=== PATIENT | female | born 1985 | race Caucasian/White ===

== ENCOUNTER 2016-10-01 15:55 | Emergency (ER) | payer OTHER ==
--- NOTE | 2016-10-01 16:22 | ED NURSING NOTES ---
Clinical Report - Nurses [facility] [place] [address] 10/01/2016 15:56 Patient: GRETCHEN HUFF TRIAGE Triage time 16:02. Acuity: LEVEL 4. Chief Complaint: SKIN PROBLEM and BOIL. Alert. No acute distress. SEPSIS SCREEN: Sepsis Screen. Negative (no infection suspected/documented). MIKE COMA SCORE: Mike Coma Scale: 15- eyes open spontaneously (4); best verbal response- oriented x 4 (5); best motor response- obeys commands (6). --16:12 Jane Taveras R.N. 16:02 10/01/16. BP: 130/71. HR: 87. RR: 16. O2 saturation: 99%. Temp: 98.7 F. Pain level now 7/10. --16:12 Jane Taveras R.N. Weight: 81.6 kg stated. Height/Length: 65 inches Per Patient. BMI: 30. --16:10 Jane Taveras R.N. Medications Methadone HCl Oral 98mg, daily. --16:04 Jane Taveras R.N. Allergies Penicillin. --16:04 Jane Taveras R.N. Keflex.(Anaphylaxis) --16:04 Jane Taveras R.N. Bactrim. --16:04 Jane Taveras R.N. Biaxin. --16:05 Jane Taveras R.N. Cephalosporins. --16:05 Jane Taveras R.N. Other antibiotics cant recall . --16:05 Jane Taveras R.N. The following entry was struck and corrected by Jane Taveras R.N., 16:09 (10/01/16) Reason for correction - other(correction). <<STRICKEN ENTRY-- Keflex. --16:04 Jane Taveras R.N. --END STRIKE>>. History Arrived by private vehicle. Historian: patient. Unaccompanied (pt dropped off). Primary physician (none). Reported as located on the left thigh. Onset. (2 days ago). Treatment RESEARCH MANAGEMENT ASSOCIATE: None. PAST MEDICAL HX: Immunizations: up-to-date. SOCIAL HX: Light tobacco smoker (cigarette)- less than 1/2 a pack per day. History of IV drug use: heroin, methamphetamines. (last used today in the am). No alcohol use. No infectious disease exposure. ABUSE ASSESSMENT: Abuse assessment: The patient was asked "Do you feel safe in your home?" and "Has anyone hurt you or threatened to hurt you?". No report of abuse. SELF HARM ASSESSMENT: A self harm assessment was performed. The patient answered "no" to the question "Do you have thoughts of harming or killing yourself?" and "Have you recently had thoughts about harming or killing others?". NUTRITIONAL RISK ASSESSMENT: The nutritional risk assessment revealed no deficiencies. FUNCTIONAL ASSESSMENT: Functional assessment: no impairments noted. LEARNING NEEDS ASSESSMENT: The learning needs assessment revealed no barriers. --16:12 Jane Taveras R.N. PROBLEMS: DVT - Deep Venous Thrombosis. Gallstone pancreatitis. Osteomyelitis. Abscess. --16:08 Jane Taveras R.N. MRSA Infection. Hepatitis. --16:17 Jane Taveras R.N. ADDITIONAL SURGERIES: Gallbladder Surgery. Laparoscopy. Left foot. --16:08 Jane Taveras R.N. Interventions ID band on patient. Ambulatory. --16:12 Jane Taveras R.N. PHYSICAL ASSESSMENT Ambulatory to room. GENERAL / NEURO / PSYCH: Alert. The patient does not appear to be in acute distress. RESPIRATORY: Respirations not labored. CVS: Capillary refill less than 2 seconds. SKIN: Skin is warm and dry. Single skin lesion on the left thigh. --16:12 Jane Taveras R.N. NURSING PROGRESS NOTES Patient ready for evaluation- chart flagged. --16:12 Jane Taveras R.N. Patient gowned. Two patient identifiers checked. Call light placed in reach. Side rails up x 2. Bed placed in lowest position. Brakes of bed on. --16:12 Jane Taveras R.N. ( wound irrigated with 250ml NS.). --16:24 Jane Taveras R.N. DISPOSITION / DISCHARGE 16:40. Departure time: 1640. Condition at departure: stable. No learning barriers present. Discharge instructions provided and reviewed with the patient. Reviewed medication(s) side effects, precautions, dosing and course information. Prescription(s) given to the patient. Reviewed referral to family practice for followup. Patient verbalized understanding. Written instructions provided in Dutch. The patient was discharged home and unaccompanied at time of discharge. She left the Emergency Department ambulatory. Medication list reviewed and validated. --16:54 Jane Taveras R.N. 16:40 10/01/16. RR: 16. [place]-Rodriguez pain scale: 10. --16:54 Jane Taveras R.N. 16:40. ( d/c v/s deferred due to pt in ED < 1 hour. Pt. appears stable and comfortable at time of d/c.). --16:57 Jane Taveras R.N. Locked/Released at 10/01/2016 16:57 by Jane Taveras R.N.
--- NOTE | 2016-10-01 16:22 | ED CLINICAL REPORT ---
Clinical Report - Physicians/[facility] [address] [place] [address] 10/01/2016 15:56 Patient: GRETCHEN HUFF Time Seen: 16:08; upon arrival, initial patient contact, initial documentation, patient care assumed. Arrived- By private vehicle. Historian- patient. HISTORY OF PRESENT ILLNESS Chief Complaint: LESION. This started about 2 days ago and is still present but is improving. Not itchy, painful or burning. It has been located on the trunk (L groin area). No cause has been identified. (says it is better now after she opened it herself x2 days ago pt admitted to being noncompliant with her meds and medical tx pt also admitted to rn that she used that site for iv drug use). Similar symptoms previously: Frequently, worse. Recent medical care: Not recently seen/assessed. REVIEW OF SYSTEMS No fever. All systems otherwise negative, except as recorded above. PAST HISTORY See nurses notes. PROBLEMS: DVT - Deep Venous Thrombosis. Gallstone pancreatitis. Osteomyelitis. Abscess. --16:08 Jane Taveras R.N. MRSA Infection. Hepatitis. --16:17 Jane Taveras R.N. ADDITIONAL SURGERIES: Gallbladder Surgery. Laparoscopy. Left foot. --16:08 Jane Taveras R.N. Chronic substance abuse (heroin, methamphetamines). SOCIAL HISTORY Light tobacco smoker. Occasional alcohol use. History of heavy IV drug use: heroin, methamphetamines. Recently used drugs today. No recent travel. Is a local resident. FAMILY HISTORY Negative. ADDITIONAL NOTES The nursing notes have been reviewed with agreement regarding the chief complaint, HPI, ROS, PMH and patient medications and allergies. PHYSICAL EXAM Vital Signs: 10/01/2016 16:02 BP: 130/71. HR: 87. RR: 16. O2 saturation: 99%. Temp: 98.7 F. Have been reviewed as normal and appear to be correct. Appearance: Alert. Oriented X3. No acute distress. Neck: Neck supple. Respiratory: No respiratory distress. Skin: Skin warm and dry. Normal skin color. No rash. Normal skin turgor. (needle size hole noted to L groin/inguinal area, no dc, no erythema, no swelling, no warmth, nontender, iv drug use site, no lymphadenitis or swelling). Extremities: Normal external inspection. Extremities nontender. Neuro: Oriented X 3. No motor deficit. No sensory deficit. PROGRESS AND PROCEDURES Course of Care: pt has ellie with recommendations for rx narcs or benzos, and use of er, #11 er visits, see report for full details tx options discussed, pt wanting rx for abx to keep it from getting worse, pt stated she could take sulfa products, just not bactrim because bactrim made her vomit, would also like stuff to pack it with and irrigate. Patient counseled in person regarding the patient's stable condition and diagnosis. 16:21. Differential Diagnosis: Other possible considerations: substance abuse, abscess, cellulitis, mrsa. Above considerations are based on history and physical exam. Differential diagnosis was discussed with patient. Disposition: Discharged home in good and improved condition (16:22). Condition: good and stable. CLINICAL IMPRESSION Substance abuse. (Local Skin Infection). INSTRUCTIONS Warnings: GENERAL WARNINGS: Return or contact your physician immediately if your condition worsens or changes unexpectedly, if not improving as expected, or if other problems arise. Specifically return if problem worsens. Prescription Medications: Sulfamethoxazole 500 mg: take 1 tablet orally every 12 hours for 10 days. No refill Bactroban 2% ointment: apply small amount to affected area three times daily for 5 days. Dispense twenty-two (22) grams. No refills. Substitution is permissible. Follow-up: Follow up with your doctor in about three days as needed and for wound check. Call for an appointment. Summary of care provided to patient. Understanding of the discharge instructions verbalized by patient. (Electronically signed by Rosita Esparza A.R.N.P. 10/01/2016 19:05)
--- NOTE | 2016-10-01 19:05 | ED DISCHARGE INSTRUCTIONS ---
Patient: GRETCHEN HUFF General Instructions [facility] VisitID: [id number] [place] [address] 31y, F Registration Date/Time: 10/01/2016 Substance abuse. (Local Skin Infection). INSTRUCTIONS Warnings: GENERAL WARNINGS: Return or contact your physician immediately if your condition worsens or changes unexpectedly, if not improving as expected, or if other problems arise. Specifically return if problem worsens. Prescription Medications: Sulfamethoxazole 500 mg: take 1 tablet orally every 12 hours for 10 days. No refill Bactroban 2% ointment: apply small amount to affected area three times daily for 5 days. Dispense twenty-two (22) grams. No refills. Substitution is permissible. Follow-up: Follow up with your doctor in about three days as needed and for wound check. Call for an appointment. Summary of care provided to patient. Understanding of the discharge instructions verbalized by patient. ADDITIONAL INFORMATION Drug Abuse Use and abuse of such drugs as marijuana, amphetamines (speed, crank), cocaine, heroin or prescription pain medicines (Vicodin, codeine), sedatives and sleeping pills (Valium, Klonopin), PCP, mescaline and LSD may lead to addiction or dependence. Once this occurs, you are at greater risk for any of the following: Craving for the drug and unable to stop using the drug even though you think you want to stop (psychological dependence) Drug withdrawal symptoms if you stop taking the drug (physical dependence) Loss of your job or your family Arrest, conviction and skilled nursing sentence for possession of an illegal substance or for driving under the influence of such a substance Accidental injuries to yourself or others while you are under the influence of the drug (in a car or at home). HIV infection (much greater risk if you use IV drugs) Other sexually transmitted diseases (herpes, chlamydia, gonorrhea and others) Severe and fatal infection of the heart valves (if you use IV drugs) Stroke, heart attack, hepatitis B or C, kidney failure from overdose Home Care: Admit you have a drug problem. Ask for help from your family and close friends. Seek professional help. This could be in the form of individual psychotherapy or counseling or an outpatient, inpatient, or residential drug treatment program. Join a self-help group for drug abuse. Avoid friends who abuse drugs themselves or tempt you to continue abusing drugs. Eat a balanced diet and begin a regular exercise program. Follow Up with your doctor or as advised by our staff. Contact one of the resources below for help. National [place] on Alcoholism and Drug Dependence www.ncadd.org 696-153-GJIJ Narcotics Anonymous www.na.org 990-299-4462 National Alcohol and Substance Abuse Information Center (for referral to treatment programs) www.addictionHistoric Futures 799-468-1837 Get Prompt Medical Attention if any of the following occur: Agitation, anxiety, unable to sleep Unintended weight loss (more than 10 to 15 pounds over 3 months) Seizure Chest pain Fever of 100.4F (38C) or higher, or as directed by your healthcare provider Excess drowsiness or inability to be awakened Shortness of breath Slow breathing under 8 breaths per minute Cough with colored sputum Redness, swelling or tenderness at an injection site Sulfamethoxazole, Trimethoprim Oral tablet What is this medicine? SULFAMETHOXAZOLE; TRIMETHOPRIM or SMX-TMP (suhl fuh meth OK sanket zohl; trye METH oh prim) is a combination of a sulfonamide antibiotic and a second antibiotic, trimethoprim. It is used to treat or prevent certain kinds of bacterial infections. It will not work for colds, flu, or other viral infections. How should I use this medicine? Take this medicine by mouth with a full glass of water. Follow the directions on the prescription label. Take your medicine at regular intervals. Do not take it more often than directed. Do not skip doses or stop your medicine early. Talk to your optical design engineer regarding the use of this medicine in children. Special care may be needed. This medicine has been used in children as young as 2 months of age. What side effects may I notice from receiving this medicine? Side effects that you should report to your doctor or health chiropractic care as soon as possible: allergic reactions like skin rash or hives, swelling of the face, lips, or tongue breathing problems fever or chills, sore throat irregular heartbeat, chest pain joint or muscle pain pain or difficulty passing urine red pinpoint spots on skin redness, blistering, peeling or loosening of the skin, including inside the mouth unusual bleeding or bruising unusually weak or tired yellowing of the eyes or skin Side effects that usually do not require medical attention (report to your doctor or health chiropractic care if they continue or are bothersome): diarrhea dizziness headache loss of appetite nausea, vomiting nervousness What may interact with this medicine? Do not take this medicine with any of the following medications: aminobenzoate potassium dofetilide metronidazole This medicine may also interact with the following medications: FAVIAN inhibitors like benazepril, enalapril, lisinopril, and ramipril cyclosporine digoxin diuretics indomethacin medicines for diabetes methenamine methotrexate phenytoin potassium supplements pyrimethamine sulfinpyrazone tricyclic antidepressants warfarin What if I miss a dose? If you miss a dose, take it as soon as you can. If it is almost time for your next dose, take only that dose. Do not take double or extra doses. Where should I keep my medicine? Keep out of the reach of children. Store at room temperature between 20 to 25 degrees C (68 to 77 degrees F). Protect from light. Throw away any unused medicine after the expiration date. What should I tell my health care provider before I take this medicine? They need to know if you have any of these conditions: anemia asthma being treated with anticonvulsants if you frequently drink alcohol containing drinks kidney disease liver disease low level of folic acid or hzjrogv-[id number]-vqdbmpdld dehydrogenase poor nutrition or malabsorption porphyria severe allergies thyroid disorder an unusual or allergic reaction to sulfamethoxazole, trimethoprim, sulfa drugs, other medicines, foods, dyes, or preservatives or trying to get breast-feeding What should I watch for while using this medicine? Tell your doctor or health chiropractic care if your symptoms do not improve. Drink several glasses of water a day to reduce the risk of kidney problems. Do not treat diarrhea with over the counter products. Contact your doctor if you have diarrhea that lasts more than 2 days or if it is severe and watery. This medicine can make you more sensitive to the sun. Keep out of the sun. If you cannot avoid being in the sun, wear protective clothing and use a sunscreen. Do not use sun lamps or tanning beds/booths. Mupirocin Topical ointment What is this medicine? MUPIROCIN (myoo PEER oh sin) is an antibiotic. It is used on the skin to treat skin infections. How should I use this medicine? This medicine is for external use only. Follow the directions on the prescription label. Wash your hands before and after use. Before applying, wash the affected area with mild soap and water and pat dry. Apply a small amount to the affected area and rub gently. You can cover the area with a gauze dressing. Do not get this medicine in your eyes. If you do, rinse out with plenty of cool tap water. Do not use your medicine more often than directed. Finish the full course of medicine prescribed by your doctor or health chiropractic care even if you think your condition is better. Do not use over large areas of burnt skin. Talk to your optical design engineer regarding the use of this medicine in children. Special care may be needed. What side effects may I notice from receiving this medicine? Side effects that you should report to your doctor or health chiropractic care as soon as possible: skin rash, redness, continued swelling, burning, itching, stinging, or pain Side effects that usually do not require medical attention (report to your doctor or health chiropractic care if they continue or are bothersome): dry skin, itching What may interact with this medicine? Interactions are not expected. Do not use any other skin products on the affected area without telling your doctor or health chiropractic care. What if I miss a dose? If you miss a dose, take it as soon as you can. If it is almost time for your next dose, take only that dose. Do not take double or extra doses. Where should I keep my medicine? Keep out of the reach of children. Store at room temperature between 20 and 25 degrees C (68 and 77 degrees F). Throw away any unused medicine after the expiration date. What should I tell my health care provider before I take this medicine? They need to know if you have any of these conditions: an unusual or allergic reaction to mupirocin, polyethylene glycol (PEG), or other topical antibiotic medicine or trying to get breast-feeding What should I watch for while using this medicine? Tell your doctor or health chiropractic care if your skin condition does not begin to improve within 3 to 5 days. You have been given the following additional information: Drug Abuse Sulfamethoxazole, Trimethoprim Oral tablet Mupirocin Topical ointment (Electronically signed by Rosita Esparza A.R.N.P. 10/01/2016 19:05)
--- NOTE | 2016-10-01 19:05 | ED MAR SUMMARY ---
..... Medication Administration Record [facility] [address] [place], [place] [id number] Patient: GRETCHEN HUFF Visit ID: [id number] 31y, F Weight: 81.6 kg Height/Length: 65 in BMI: 30 ALLERGIES: Other antibiotics cant recall , Cephalosporins, Biaxin, Bactrim, Penicillin, Keflex
--- NOTE | 2016-10-01 19:05 | ED MED RECONCILIATION SUMMARY ---
Patient: GRETCHEN HUFF Medication Reconciliation Report [facility] VisitID: [id number] [address] [place] [address] 31y, F Registration Date/Time: 10/01/2016 Weight: 81.6 kg Height/Length: 65 in. BMI: 30.0 ALLERGIES: Bactrim, Biaxin, Cephalosporins, Keflex, Other antibiotics cant recall , Penicillin The patient's Home Medications are listed below: THE FOLLOWING MEDICATIONS NEED TO BE RECONCILED: Methadone HCl Oral 98mg, daily The source(s) of the original Home Medication information: Not obtained. The following Medications were given to the patient in the Emergency Department: None. The following Medications were prescribed to the patient: Sulfamethoxazole 500 mg: take 1 tablet orally every 12 hours for 10 days. No refill -- Rosita Esparza, A.R.N.P. Bactroban 2% ointment: apply small amount to affected area three times daily for 5 days. Dispense twenty-two (22) grams. No refills. Substitution is permissible. -- Rosita Esparza, A.R.N.P.
--- NOTE | 2016-10-01 19:05 | ED MED RECONCILIATION SUMMARY ---
Patient: GRETCHEN HUFF Medication Reconciliation Report [facility] VisitID: [id number] [address] [place] [address] 31y, F Registration Date/Time: 10/01/2016 Weight: 81.6 kg Height/Length: 65 in. BMI: 30.0 ALLERGIES: Bactrim, Biaxin, Cephalosporins, Keflex, Other antibiotics cant recall , Penicillin The patient's Home Medications are listed below: THE FOLLOWING MEDICATIONS NEED TO BE RECONCILED: Methadone HCl Oral 98mg, daily The source(s) of the original Home Medication information: Not obtained. The following Medications were given to the patient in the Emergency Department: None. The following Medications were prescribed to the patient: Sulfamethoxazole 500 mg: take 1 tablet orally every 12 hours for 10 days. No refill -- Rosita Esparza, A.R.N.P. Bactroban 2% ointment: apply small amount to affected area three times daily for 5 days. Dispense twenty-two (22) grams. No refills. Substitution is permissible. -- Rosita Esparza, A.R.N.P.
--- NOTE | 2016-10-01 19:05 | ED MAR SUMMARY ---
..... Medication Administration Record [facility] [address] [place], [place] [id number] Patient: GRETCHEN HUFF Visit ID: [id number] 31y, F Weight: 81.6 kg Height/Length: 65 in BMI: 30 ALLERGIES: Other antibiotics cant recall , Cephalosporins, Biaxin, Bactrim, Penicillin, Keflex
--- NOTE | 2016-10-01 19:05 | ED DISCHARGE INSTRUCTIONS ---
Patient: GRETCHEN HUFF General Instructions [facility] VisitID: [id number] [place] [address] 31y, F Registration Date/Time: 10/01/2016 Substance abuse. (Local Skin Infection). INSTRUCTIONS Warnings: GENERAL WARNINGS: Return or contact your physician immediately if your condition worsens or changes unexpectedly, if not improving as expected, or if other problems arise. Specifically return if problem worsens. Prescription Medications: Sulfamethoxazole 500 mg: take 1 tablet orally every 12 hours for 10 days. No refill Bactroban 2% ointment: apply small amount to affected area three times daily for 5 days. Dispense twenty-two (22) grams. No refills. Substitution is permissible. Follow-up: Follow up with your doctor in about three days as needed and for wound check. Call for an appointment. Summary of care provided to patient. Understanding of the discharge instructions verbalized by patient. ADDITIONAL INFORMATION Drug Abuse Use and abuse of such drugs as marijuana, amphetamines (speed, crank), cocaine, heroin or prescription pain medicines (Vicodin, codeine), sedatives and sleeping pills (Valium, Klonopin), PCP, mescaline and LSD may lead to addiction or dependence. Once this occurs, you are at greater risk for any of the following: Craving for the drug and unable to stop using the drug even though you think you want to stop (psychological dependence) Drug withdrawal symptoms if you stop taking the drug (physical dependence) Loss of your job or your family Arrest, conviction and half-way sentence for possession of an illegal substance or for driving under the influence of such a substance Accidental injuries to yourself or others while you are under the influence of the drug (in a car or at home). HIV infection (much greater risk if you use IV drugs) Other sexually transmitted diseases (herpes, chlamydia, gonorrhea and others) Severe and fatal infection of the heart valves (if you use IV drugs) Stroke, heart attack, hepatitis B or C, kidney failure from overdose Home Care: Admit you have a drug problem. Ask for help from your family and close friends. Seek professional help. This could be in the form of individual psychotherapy or counseling or an outpatient, inpatient, or residential drug treatment program. Join a self-help group for drug abuse. Avoid friends who abuse drugs themselves or tempt you to continue abusing drugs. Eat a balanced diet and begin a regular exercise program. Follow Up with your doctor or as advised by our staff. Contact one of the resources below for help. National [place] on Alcoholism and Drug Dependence www.ncadd.org 231-944-RXFK Narcotics Anonymous www.na.org 847-194-8729 National Alcohol and Substance Abuse Information Center (for referral to treatment programs) www.addictionFjuul 194-720-3700 Get Prompt Medical Attention if any of the following occur: Agitation, anxiety, unable to sleep Unintended weight loss (more than 10 to 15 pounds over 3 months) Seizure Chest pain Fever of 100.4F (38C) or higher, or as directed by your healthcare provider Excess drowsiness or inability to be awakened Shortness of breath Slow breathing under 8 breaths per minute Cough with colored sputum Redness, swelling or tenderness at an injection site Sulfamethoxazole, Trimethoprim Oral tablet What is this medicine? SULFAMETHOXAZOLE; TRIMETHOPRIM or SMX-TMP (suhl fuh meth OK sanket zohl; trye METH oh prim) is a combination of a sulfonamide antibiotic and a second antibiotic, trimethoprim. It is used to treat or prevent certain kinds of bacterial infections. It will not work for colds, flu, or other viral infections. How should I use this medicine? Take this medicine by mouth with a full glass of water. Follow the directions on the prescription label. Take your medicine at regular intervals. Do not take it more often than directed. Do not skip doses or stop your medicine early. Talk to your research leader regarding the use of this medicine in children. Special care may be needed. This medicine has been used in children as young as 2 months of age. What side effects may I notice from receiving this medicine? Side effects that you should report to your doctor or health managed care manager as soon as possible: allergic reactions like skin rash or hives, swelling of the face, lips, or tongue breathing problems fever or chills, sore throat irregular heartbeat, chest pain joint or muscle pain pain or difficulty passing urine red pinpoint spots on skin redness, blistering, peeling or loosening of the skin, including inside the mouth unusual bleeding or bruising unusually weak or tired yellowing of the eyes or skin Side effects that usually do not require medical attention (report to your doctor or health managed care manager if they continue or are bothersome): diarrhea dizziness headache loss of appetite nausea, vomiting nervousness What may interact with this medicine? Do not take this medicine with any of the following medications: aminobenzoate potassium dofetilide metronidazole This medicine may also interact with the following medications: FAVIAN inhibitors like benazepril, enalapril, lisinopril, and ramipril cyclosporine digoxin diuretics indomethacin medicines for diabetes methenamine methotrexate phenytoin potassium supplements pyrimethamine sulfinpyrazone tricyclic antidepressants warfarin What if I miss a dose? If you miss a dose, take it as soon as you can. If it is almost time for your next dose, take only that dose. Do not take double or extra doses. Where should I keep my medicine? Keep out of the reach of children. Store at room temperature between 20 to 25 degrees C (68 to 77 degrees F). Protect from light. Throw away any unused medicine after the expiration date. What should I tell my health care provider before I take this medicine? They need to know if you have any of these conditions: anemia asthma being treated with anticonvulsants if you frequently drink alcohol containing drinks kidney disease liver disease low level of folic acid or [id number] dehydrogenase poor nutrition or malabsorption porphyria severe allergies thyroid disorder an unusual or allergic reaction to sulfamethoxazole, trimethoprim, sulfa drugs, other medicines, foods, dyes, or preservatives or trying to get breast-feeding What should I watch for while using this medicine? Tell your doctor or health managed care manager if your symptoms do not improve. Drink several glasses of water a day to reduce the risk of kidney problems. Do not treat diarrhea with over the counter products. Contact your doctor if you have diarrhea that lasts more than 2 days or if it is severe and watery. This medicine can make you more sensitive to the sun. Keep out of the sun. If you cannot avoid being in the sun, wear protective clothing and use a sunscreen. Do not use sun lamps or tanning beds/booths. Mupirocin Topical ointment What is this medicine? MUPIROCIN (myoo PEER oh sin) is an antibiotic. It is used on the skin to treat skin infections. How should I use this medicine? This medicine is for external use only. Follow the directions on the prescription label. Wash your hands before and after use. Before applying, wash the affected area with mild soap and water and pat dry. Apply a small amount to the affected area and rub gently. You can cover the area with a gauze dressing. Do not get this medicine in your eyes. If you do, rinse out with plenty of cool tap water. Do not use your medicine more often than directed. Finish the full course of medicine prescribed by your doctor or health managed care manager even if you think your condition is better. Do not use over large areas of burnt skin. Talk to your research leader regarding the use of this medicine in children. Special care may be needed. What side effects may I notice from receiving this medicine? Side effects that you should report to your doctor or health managed care manager as soon as possible: skin rash, redness, continued swelling, burning, itching, stinging, or pain Side effects that usually do not require medical attention (report to your doctor or health managed care manager if they continue or are bothersome): dry skin, itching What may interact with this medicine? Interactions are not expected. Do not use any other skin products on the affected area without telling your doctor or health managed care manager. What if I miss a dose? If you miss a dose, take it as soon as you can. If it is almost time for your next dose, take only that dose. Do not take double or extra doses. Where should I keep my medicine? Keep out of the reach of children. Store at room temperature between 20 and 25 degrees C (68 and 77 degrees F). Throw away any unused medicine after the expiration date. What should I tell my health care provider before I take this medicine? They need to know if you have any of these conditions: an unusual or allergic reaction to mupirocin, polyethylene glycol (PEG), or other topical antibiotic medicine or trying to get breast-feeding What should I watch for while using this medicine? Tell your doctor or health managed care manager if your skin condition does not begin to improve within 3 to 5 days. You have been given the following additional information: Drug Abuse Sulfamethoxazole, Trimethoprim Oral tablet Mupirocin Topical ointment (Electronically signed by Rosita Esparza A.R.N.P. 10/01/2016 19:05)
== END 2016-10-01 16:40 | disposition home or self-care (01) ==
LOC: ED SRH 15:55
DX: F19.10 Other psychoactive substance abuse, uncomplicated (principal); L08.9 Local infection of the skin and subcutaneous tissue, unspecified; Z91.14 Patient's other noncompliance with medication regimen; Z79.891 Long term (current) use of opiate analgesic; Z88.0 Allergy status to penicillin; Z88.1 Allergy status to other antibiotic agents